=== PATIENT | male | born 1970 | race Caucasian/White ===

== ENCOUNTER 2017-08-03 11:34 | Emergency (ER) | payer SELFPAY ==
[~2017-08-03] VITALS: Ht 182.9 cm; Wt 81.3 kg
[~2017-08-03 11:34] MED LIST: FLAG500T PO; HYDR-3534 PO
[2017-08-03 11:44] VITALS: BP 108/62; PULSE 66; RESP 16; TEMP 97.3; O2SAT 99
[2017-08-03 12:15] LABS: AUTOMATED NEUTROPHIL # 6.4 TH/MM3 (1.8-7.7); BASOPHIL # 0.1 TH/MM3 (0-0.2); BASOPHIL % 0.9 % (0.0-2.0); EOSINOPHIL % 0.5 % (0.0-4.0); HEMATOCRIT 42.3 % (39.0-51.0); HEMOGLOBIN 14.3 GM/DL (13.0-17.0); LYMPH % 12.1 % (9.0-44.0); MEAN CORPUSCULAR HEMOGLOBIN 30.2 PG (27.0-34.0); MEAN CORPUSCULAR HGB CONC 33.9 % (32.0-36.0); MEAN PLATELET VOLUME 7.2 FL (7.0-11.0); MONO % 4.9 % (0.0-8.0); MONOCYTE # 0.4 TH/MM3 (0-0.9); NEUT % 81.6 % (16.0-70.0); PLATELET COUNT 289 TH/MM3 (150-450); RED BLOOD COUNT 4.75 MIL/MM3 (4.50-5.90); RED CELL DISTRIBUTION WIDTH 12.9 % (11.6-17.2); WHITE BLOOD COUNT 7.9 TH/MM3 (4.0-11.0)
--- NOTE | 2017-08-03 12:15 | PD ---
HPI Chief Complaint: Abdominal Pain Time Seen by Provider: 12:02 Travel History International Travel<30 days: No Contact w/Intl Traveler<30days: No Traveled to known affect area: No History of Present Illness HPI 47yo M with no significant PMH presents to the ED with c/o abdominal pain for 2 weeks but worst today. Said pain is diffuse, and pt has chronic diarrhea but said that after bowel movement today, abdominal pain increased. Moderate severity. Had vomiting today. Also with dysuria and bilateral back pain. Denies any fever, chest pain, sob, focal weakness or numbness. PFSH Past Medical History Gastrointestinal Disorders: Yes (colitis) Tetanus Vaccination: > 5 Years Influenza Vaccination: No Social History Alcohol Use: Yes (2-3 beers/daily/occ) Tobacco Use: No Substance Use: No Allergies-Medications (Allergen,Severity, Reaction): Coded Allergies: penicillin G (Unverified Allergy, Severe, Hives, 08/03/17) Reported Meds & Prescriptions Reported Meds & Active Scripts Active No Active Prescriptions or Reported Medications Review of Systems Except as stated in HPI: all other systems reviewed are Neg Physical Exam Narrative GENERAL: 47yo M in mild distress. SKIN: Focused skin assessment warm/dry. HEAD: Atraumatic. Normocephalic. EYES: Pupils equal and round. No scleral icterus. No injection or drainage. ENT: No nasal bleeding or discharge. Mucous membranes pink and moist. NECK: Trachea midline. No JVD. CARDIOVASCULAR: Regular rate and rhythm. No murmur appreciated. RESPIRATORY: No accessory muscle use. Clear to auscultation. Breath sounds equal bilaterally. GASTROINTESTINAL: Abdomen soft, Mild epigastric, LUQ, RUQ ttp. No rebound tenderness or guarding. BACK: CVA tenderness bilaterally. No midline thoracic or lumbar ttp. MUSCULOSKELETAL: No obvious deformities. No clubbing. No cyanosis. No edema. NEUROLOGICAL: Awake and alert. No obvious cranial nerve deficits. Motor grossly within normal limits. Normal speech. PSYCHIATRIC: Appropriate mood and affect; insight and judgment normal. Data Data Last Documented VS Vital Signs Date Time Temp Pulse Resp B/P (MAP) Pulse Ox O2 Delivery O2 Flow Rate FiO2 08/03/17 13:27 61 18 107/70 (82) 98 Room Air 08/03/17 11:44 97.3 Orders Orders Urinalysis - C+S If Indicated (08/03/17 11:39) Complete Blood Count With Diff (08/03/17 12:06) Comprehensive Metabolic Panel (08/03/17 12:06) Lipase (08/03/17 12:06) Ct Abd/Pel W Iv Contrast(Rout) (08/03/17 12:06) Morphine Inj (Morphine Inj) (08/03/17 12:45) Iohexol 350 Inj (Omnipaque 350 Inj) (08/03/17 13:20) Sodium Chlor 0.9% 1000 Ml Inj (Ns 1000 M (08/03/17 14:00) Al-Mag Hy-Si 40-40-4 Mg/Ml Liq (Mag-Al P (08/03/17 14:30) Lidocaine 2% Viscous (Xylocaine 2% Visco (08/03/17 14:30) Labs Laboratory Tests Test 08/03/17 12:10 08/03/17 14:30 White Blood Count 7.9 TH/MM3 Red Blood Count 4.75 MIL/MM3 Hemoglobin 14.3 GM/DL Hematocrit 42.3 % Mean Corpuscular Volume 89.0 FL Mean Corpuscular Hemoglobin 30.2 PG Mean Corpuscular Hemoglobin Concent 33.9 % Red Cell Distribution Width 12.9 % Platelet Count 289 TH/MM3 Mean Platelet Volume 7.2 FL Neutrophils (%) (Auto) 81.6 % Lymphocytes (%) (Auto) 12.1 % Monocytes (%) (Auto) 4.9 % Eosinophils (%) (Auto) 0.5 % Basophils (%) (Auto) 0.9 % Neutrophils # (Auto) 6.4 TH/MM3 Lymphocytes # (Auto) 1.0 TH/MM3 Monocytes # (Auto) 0.4 TH/MM3 Eosinophils # (Auto) 0.0 TH/MM3 Basophils # (Auto) 0.1 TH/MM3 CBC Comment DIFF FINAL Differential Comment Blood Urea Nitrogen 20 MG/DL Creatinine 1.10 MG/DL Random Glucose 130 MG/DL Total Protein 6.7 GM/DL Albumin 3.7 GM/DL Calcium Level 8.3 MG/DL Alkaline Phosphatase 77 U/L Aspartate Amino Transf (AST/SGOT) 15 U/L Alanine Aminotransferase (ALT/SGPT) 21 U/L Total Bilirubin 0.3 MG/DL Sodium Level 142 MEQ/L Potassium Level 4.3 MEQ/L Chloride Level 108 MEQ/L Carbon Dioxide Level 27.1 MEQ/L Anion Gap 7 MEQ/L Estimat Glomerular Filtration Rate 71 ML/MIN Lipase 226 U/L Urine Color YELLOW Urine Turbidity CLEAR Urine pH 8.5 Urine Specific Center LESS/EQUAL 1.005 Urine Protein NEG mg/dL Urine Glucose (UA) NEG mg/dL Urine Ketones NEG mg/dL Urine Occult Blood NEG Urine Nitrite NEG Urine Bilirubin NEG Urine Urobilinogen 0.2 MG/DL Urine Leukocyte Esterase NEG MDM Medical Decision Making Medical Screen Exam Complete: Yes Emergency Medical Condition: Yes Differential Diagnosis Colitis vs. Irritable bowel disease vs. Inflammatory bowel disease Narrative Course 47yo M with abdominal pain and chronic diarrhea. Labs reviewed, no leukocytosis. H/H normal. BUN mildly elevated at 20. Lipase normal. UA negative. CT a/p showed nonspecific borderline fluid filled duodenum and several loops of nondistended fluid filled jejunum. Findings may reflect enteritis in the appropriate clinical setting. No acute abnormality in the abdomen or pelvis. Will cover him with metronidazole. Pt said he has been having chronic diarrhea for 2 years but did not have an episode here for stool culture. Pt given morphine and GI cocktail and pain has improved. Return precautions given. Diagnosis Primary Impression: Enteritis Patient Instructions: General Instructions Departure Forms: Tests/Procedures Additional Instructions: Please follow up with GI as outpatient. Return to the ED if symptoms worsen. Med/Other Pt SpecificInfo: Prescription(s) given Scripts Metronidazole (Metronidazole) 500 Mg Tab 500 MG PO TID for Infection for 7 Days, TAB 0 Refills Prov: Donna Orona 08/03/17 Disposition: 01 DISCHARGE HOME Condition: Stable OronaRaisa barronchip TY Aug 03, 2017 12:15
[2017-08-03 12:23] LABS: CHLORIDE 108 MEQ/L (98-107); SODIUM (NA) 142 MEQ/L (136-145)
[2017-08-03 12:26] LABS: CALCIUM 8.3 MG/DL (8.5-10.1)
[2017-08-03 12:27] LABS: ALBUMIN 3.7 GM/DL (3.4-5.0); BICARBONATE 27.1 MEQ/L (21.0-32.0); BLOOD UREA NITROGEN 20 MG/DL (7-18); GLUCOSE,RANDOM 130 MG/DL (74-106)
[2017-08-03 12:29] LABS: ALT (GPT) 21 U/L (12-78)
[2017-08-03 12:30] LABS: AST (GOT) 15 U/L (15-37); GLOMERULAR FILTRATION RATE 71 ML/MIN (>89)
[2017-08-03] MEDS ORDERED: MORPHINE SULFATE 4 MG/ML INJ IV PUSH ONE (12:30)
[2017-08-03 12:31] LABS: TOTAL BILIRUBIN ADULT 0.3 MG/DL (0.2-1.0); TOTAL PROTEIN 6.7 GM/DL (6.4-8.2)
[2017-08-03 12:32] LABS: ALKALINE PHOSPHATASE 77 U/L (45-117)
[2017-08-03 12:38] VITALS: BP 105/69; PULSE 72; RESP 18; O2SAT 100
[2017-08-03] MEDS ORDERED: MORPHINE SULFATE 2 MG/ML SYRINGE IV PUSH ONE (12:45)
[2017-08-03] MEDS ORDERED: IOHEXOL 350 MG/ML 10 ML VIAL (for RAD DIAG) IVCONTRAST ONE (13:20)
[2017-08-03 13:27] VITALS: BP 107/70; PULSE 61; RESP 18; O2SAT 98
--- NOTE | 2017-08-03 13:30 | RADRPT ---
EXAM DATE: 08/03/2017 1:22 PM EDT AGE/SEX: 47 years / Male INDICATIONS: Diffuse abdominal pain for two weeks. CLINICAL DATA: This is the patient's initial encounter. Patient reports that signs and symptoms have been present for 2 weeks and indicates a pain score of 6/10. MEDICAL/SURGICAL HISTORY: . Colitis. None. ORAL CONTRAST: No oral contrast ingested. RADIATION DOSE: 11.24 CTDI (mGy) COMPARISON: [facility], CT ABDOMEN & PELVIS W CONTRAST, 09/12/2015. . TECHNIQUE: Multiple contiguous axial images were obtained through the abdomen and pelvis following b olus infusion of 95 ml Omnipaque 350 (iohexol) nonionic water-soluble contrast as a single exam dos e. No oral contrast ingested. Using automated exposure control and adjustment of the mA and/or kV ac cording to patient size, the radiation dose was kept as low as reasonably achievable to obtain optima l diagnostic quality images. FINDINGS: LOWER LUNGS: Minimal bibasilar atelectasis. LIVER: The liver has a homogeneous density without space-occupying lesion. There is no dilation of t he biliary tree. SPLEEN: Homogeneous density without enlargement. PANCREAS: Unremarkable without mass or calcification. KIDNEYS: Stable 4 mm nonobstructing calyceal calculus in the inferior pole the left kidney with paula cent punctate calcification. Kidneys otherwise demonstrate symmetrical enhancement without hydronephr osis or focal mass. ADRENAL GLANDS: Unremarkable. AORTA: Loly-aneurysmal. BOWEL/MESENTERY: Mild sigmoid diverticulosis and scattered colonic diverticula without significant i nflammatory change to suggest diverticulitis. Appendix is visualized and normal in appearance. Duoden um is borderline in size and fluid-filled. There are also several loops of nondistended fluid-filled small bowel. No focal fluid collections or free fluid. ABDOMINAL WALL: Intact. RETROPERITONEUM: No evidence of adenopathy in the retrocrural, para-aortic, or deep pelvic regions. BLADDER: Moderately distended but otherwise unremarkable. REPRODUCTIVE: No abnormal masses or calcifications seen. BONY STRUCTURES: Unremarkable. CONCLUSION: 1. Nonspecific borderline fluid-filled duodenum and several loops of nondistended fluid filled jejun um. Findings may reflect enteritis in the appropriate clinical setting. 2. Otherwise, no acute abnormality in the abdomen or pelvis. 3. Stable ancillary findings including nonobstructing calyceal calculi in the inferior pole of the l eft kidney, mild colonic diverticulosis and minimal bibasal atelectasis. Electronically signed by: Shane Cardoso MD 08/03/2017 1:29 PM EDT
[2017-08-03] MEDS ORDERED: SODIUM CHLOR 0.9% 1000 ML INJ 1,000 ML IV ONE (14:00)
[2017-08-03] MEDS ORDERED: ALUMINUM/MAGNESIUM/SIMETH 30 ML CUP PO ONE (14:30)
[2017-08-03] MEDS ORDERED: LIDOCAINE VISCOUS 2% SOLN 15 ML UDC PO ONE (14:30)
[2017-08-03 14:50] VITALS: BP 103/65; PULSE 55; RESP 16; O2SAT 100
[2017-08-03 14:51] LABS: BILIRUBIN, URINE NEG (NEG); BLOOD, URINE NEG (NEG); GLUCOSE,URINE NEG (NEG); KETONE, URINE NEG (NEG); NITRITE,URINE NEG (NEG); PH, URINE 8.5 (5.0-8.5); URINE COLOR YELLOW (YELLW/STRAW); URINE LEUKOCYTE ESTERASE NEG (NEG)
[2017-08-03 15:04] LABS: AMORPHOUS SEDIMENT, URINE SMALL; SQUAMOUS EPITHELIAL CELL URINE 0-5 /hpf (0-5)
[2017-08-03] MEDS ORDERED: METR1TAB76 PO (15:06)
[2017-08-03 15:43] VITALS: BP 105/68
== END 2017-08-03 15:45 | disposition home or self-care (01) ==
LOC: PHED 11:34
DX: K52.9 Noninfective gastroenteritis and colitis, unspecified (principal); R11.10 Vomiting, unspecified; R30.0 Dysuria; Z88.0 Allergy status to penicillin
CPT/HCPCS: 74177; 80053; 81001; 83690; 85025; 96361; 96374; 99284; J2270; J7030; Q9967